=== PATIENT | female | born 1945 | race Caucasian/White ===

== ENCOUNTER 2016-09-16 12:26 | Outpatient (RCR) | payer MEDICARE ==
[2016-09-16] VITALS (8 sets, daily range): BP systolic 130–140; BP diastolic 50–60
[~2016-09-16 12:26] MED LIST: EPINEPHrine 1MG/ML (1:1000) 1 ML AMPUL (ADRENALIN) IV PRN; INFLIXIMAB FOR IV SCH; NS FLUSH 10 ML PRN IV; NS FLUSH 3 ML PRN IV; SODIUM CHLORIDE IV SCH; methylPREDNISolone 125 MG (Solu-MEDROL) VIAL IV SCH
[2016-09-16] MEDS ORDERED: NS FLUSH 10 ML PRN IV (12:35)
[2016-09-16] MEDS ORDERED: methylPREDNISolone 125 MG (Solu-MEDROL) VIAL IV SCH (12:35)
[2016-09-16] MEDS ORDERED: NS FLUSH 3 ML PRN IV (12:35)
[2016-09-16] MEDS ORDERED: EPINEPHrine 1MG/ML (1:1000) 1 ML AMPUL (ADRENALIN) IV PRN (12:35)
[2016-09-16] MEDS ORDERED: SODIUM CHLORIDE IV ONE (13:00)
[2016-09-16] MEDS ORDERED: INFLIXIMAB FOR IV ONE (13:00)
--- NOTE | 2016-09-16 13:00 | NUR ---
1250- Patient arrives to room 341 for outpatient treatment 1300- 22 gauge IV started in the R[facility].
--- NOTE | 2016-09-16 13:15 | NUR ---
Infusion begins at this time
--- NOTE | 2016-09-16 15:40 | NUR ---
Remicade infusion completed and pt was here for another 15 min post infusion. IV dcd and coban applied. Pt left ambulatory to home.
== END 2016-09-16 15:40 | disposition home or self-care (01) ==
LOC: ICU 12:42 → EUOP 15:40
PROVIDERS: ATTEND Family Medicine
DX: K51.90 Ulcerative colitis, unspecified, without complications (principal)
CPT/HCPCS: 96413; 96415; J1745; J2930; J7050

== ENCOUNTER 2016-11-11 12:43 | Outpatient (RCR) | payer MEDICARE ==
[~2016-11-11] VITALS: Ht 160 cm; Wt 61.7 kg
[2016-11-11] VITALS (8 sets, daily range): BP systolic 144–157; BP diastolic 58–75
[~2016-11-11 12:43] MED LIST changes: +ALEN70TA2 PO; +ASPI325T4 PO; +CALC600T12 PO; +CLPD75T PO; +CYCL10TA45 PO; -EPINEPHrine 1MG/ML (1:1000) 1 ML AMPUL (ADRENALIN) IV PRN; +FISH1CAP15 PO; +HCTZ12.5T PO; +HYDR-3702 PO; -INFLIXIMAB FOR IV SCH; +MAGN250T7 PO; +METO25TA60 PO; +NAPR500T3 PO; +NITR0.4T SL; +NR-METANX PO; -NS FLUSH 10 ML PRN IV; -NS FLUSH 3 ML PRN IV; +SIMV40TA2 PO; -SODIUM CHLORIDE IV SCH; +UBID100C8 PO; -methylPREDNISolone 125 MG (Solu-MEDROL) VIAL IV SCH
[2016-11-11] MEDS ORDERED: methylPREDNISolone 125 MG (Solu-MEDROL) VIAL IV ONE (12:53)
[2016-11-11] MEDS ORDERED: NS FLUSH 10 ML PRN IV (12:55)
[2016-11-11] MEDS ORDERED: NS FLUSH 3 ML PRN IV (12:55)
[2016-11-11] MEDS ORDERED: EPINEPHrine 1MG/ML (1:1000) 1 ML AMPUL (ADRENALIN) IV PRN (13:00)
--- NOTE | 2016-11-11 13:00 | NUR ---
Pt. arrives to 341, ambulatory, for Remicade infusion.
[2016-11-11] MEDS ORDERED: NS 50 ML (IVPB) BAG IV PRN (13:10)
[2016-11-11] MEDS ORDERED: INFLIXIMAB FOR IV ONE (13:15)
[2016-11-11] MEDS ORDERED: SODIUM CHLORIDE IV ONE (13:15)
--- NOTE | 2016-11-11 13:43 | NUR ---
Solu-Medrol premed has been given. Remicade infusion started at this time at 125ml/hr. Monitoring HR and BP Q30min.
--- NOTE | 2016-11-11 15:58 | NUR ---
Remicade infusion complete. Pt. tolerated well. VSS.
--- NOTE | 2016-11-11 16:32 | NUR ---
30 min post infusion VSS. Pt. dismissed to home at this time, ambulatory.
[2017-01-06] MEDS ORDERED: methylPREDNISolone 125 MG (Solu-MEDROL) VIAL IV ONE (12:40)
--- NOTE | 2017-01-06 12:55 | NUR ---
Ppower for a scheduled femicade infusion. atient arrived to ICU room 341 unassisted under her own. Patient is A&O x4.
[2017-01-06] MEDS ORDERED: INFLIXIMAB FOR IV ONE (13:00)
[2017-01-06] MEDS ORDERED: SODIUM CHLORIDE IV ONE (13:00)
[2017-01-06] MEDS ORDERED: SODIUM CHLORIDE FLUSH 20 ML ONE (13:08)
[2017-01-06 13:33] VITALS: BP 158/64
--- NOTE | 2017-01-06 13:35 | NUR ---
Remicade infusion completed.247 ml infused. IV to left antecubital is DCd. Pressure held for 3 minutes. 2x2 guaze dressing applied and secured with paper tape.
--- NOTE | 2017-01-06 13:35 | NUR ---
IV Remicade infusion startedwith 2.0 micron filter placed in line. Patient is in recliner with warm blanket in place.
--- NOTE | 2017-01-06 13:50 | NUR ---
20 gauge IV started inleft antecubital on first try without difficulty. Good bplood return. % ml NS used to flush IV.
[2017-01-06 14:00] VITALS: BP 153/58
--- NOTE | 2017-01-06 14:00 | NUR ---
Patient is resting in reclining with her eyes closed. VS are BP 153/58, pulse64, SpO2 98% on room air. Patient denies needs.
[2017-01-06 14:30] VITALS: BP 151/62
--- NOTE | 2017-01-06 14:30 | NUR ---
Vital signs are stable. BP 151/62, pulse54, SpO2 97%. Patient is resting in recliner with eyes closed. Patient denies needs.
[2017-01-06 15:00] VITALS: BP 147/73
--- NOTE | 2017-01-06 15:00 | NUR ---
Patient is sittingup in recliner with eyes open. VS are still stable. BP is 147/73, pulse is 58, and SpO2 is 95 % on room air. Patient denies needs.
[2017-01-06] MEDS ORDERED: SODIUM CHLORIDE 200 ML ONE (15:07)
[2017-01-06 15:30] VITALS: BP 159/59
--- NOTE | 2017-01-06 15:30 | NUR ---
VS remain stable. BP 159/59, pulse61, SpO2 95% on room air. Patient denies needs.
[2017-01-06 16:00] VITALS: BP 149/71
--- NOTE | 2017-01-06 16:00 | NUR ---
30 minute post infusion vital signs were stable. BP was 149/71, pulse was65, SpO2 was96% on room air. Patient left ambulatory under her own power and no one was with her.
== END 2017-01-13 18:22 | disposition home or self-care (01) ==
LOC: EUOP 13:04 → ICU 13:04 → EUOP 01-06 12:32 → ICU 01-06 12:48 → EUOP 01-06 12:48
PROVIDERS: ATTEND Family Medicine
DX: K51.90 Ulcerative colitis, unspecified, without complications (principal)
CPT/HCPCS: 96413; 96415; J1745; J2930; J7050